=== PATIENT | female | born 1950 | race Caucasian/White ===

== ENCOUNTER 2021-06-07 11:35 | Day surgery (SDC) | payer MEDICARE, BC ==
[~2021-06-07 11:35] MED LIST: Lactated Ringers 1,000 ML IV SCH; Sodium Chloride 0.9% 10 ML Syringe FLUSH PRN; Sodium Chloride 0.9% 2.5 ML Syringe FLUSH PRN; Sodium Chloride 0.9% 20 ML SDV IV PRN
[2021-06-07] MEDS ORDERED: Lidocaine 1% 20 ML MDV ONE (13:33)
[2021-06-07] MEDS ORDERED: Octyl 2-Cyanoacrylate 1 Tube ONE (14:03)
== END 2021-06-07 14:40 | disposition home or self-care (01) ==
LOC: MW.SDS 11:35
PROVIDERS: ATTEND Surgery
DX: L72.0 Epidermal cyst (principal); Z88.8 Allergy status to other drugs, medicaments and biological substances; Z88.0 Allergy status to penicillin; Z88.2 Allergy status to sulfonamides; Z98.890 Other specified postprocedural states
CPT/HCPCS: 11402; A9270; 88304

== ENCOUNTER 2021-12-14 06:00 | Day surgery (SDC) | payer MEDICARE, BC ==
[2021-12-14] MEDS ORDERED: Pregabalin 75 MG Cap ONE (07:11)
[2021-12-14] MEDS ORDERED: Scopolamine 1.5 MG Transdermal Patch ONE (07:11)
[2021-12-14] MEDS ORDERED: Ondansetron 4 MG/2 ML SDV ONE (07:22)
[2021-12-14] MEDS ORDERED: Lidocaine 2% 5 ML SDV ONE (07:22)
[2021-12-14] MEDS ORDERED: Propofol 200 MG/20 ML SDV ONE (07:22)
[2021-12-14] MEDS ORDERED: fentaNYL 100 MCG/2 ML SDV ONE (07:22)
[2021-12-14] MEDS ORDERED: Sugammadex Sodium 200 MG/2 ML VIAL ONE (07:22)
[2021-12-14] MEDS ORDERED: Rocuronium Bromide 50 MG/5 ML Syringe ONE (07:22)
[2021-12-14] MEDS ORDERED: Dexamethasone 4 MG/ML 5 ML MDV ONE (07:22)
[2021-12-14] MEDS ORDERED: Bupivacaine 0.25% 30 ML SDV ONE (07:27)
[2021-12-14] MEDS ORDERED: Ropivacaine 0.5% 5 MG/ML 30 ML SDV ONE (07:41)
[2021-12-14] MEDS ORDERED: Lactated Ringers 1,000 ML IV ONE (08:00)
[2021-12-14] MEDS ORDERED: Phenylephrine HCl In 0.9% NaCl 1 MG/10 ML Vial ONE (09:00)
[2021-12-14] MEDS ORDERED: Indocyanine Green 25 MG SDV ONE (09:13)
[2021-12-14] MEDS ORDERED: Water For Injection, Sterile 20 ML ONE (09:13)
== END 2021-12-14 13:00 ==
LOC: MW.SDS 06:00
PROVIDERS: ATTEND Surgery
DX: K81.1 Chronic cholecystitis (principal); K82.8 Other specified diseases of gallbladder; Z88.5 Allergy status to narcotic agent; Z88.0 Allergy status to penicillin; Z88.2 Allergy status to sulfonamides; Z88.8 Allergy status to other drugs, medicaments and biological substances; Z79.82 Long term (current) use of aspirin; Z79.899 Other long term (current) drug therapy; Z98.890 Other specified postprocedural states
CPT/HCPCS: 47562; A9270; J0131; J0694; J1100; J2405; J2704; J2795; J3010; J3490; J7120; 00790; 64488

== ENCOUNTER 2022-07-19 06:31 | Day surgery (SDC) | payer MEDICARE, BC ==
[~2022-07-19 06:31] MED LIST changes: -Sodium Chloride 0.9% 10 ML Syringe FLUSH PRN; -Sodium Chloride 0.9% 2.5 ML Syringe FLUSH PRN; -Sodium Chloride 0.9% 20 ML SDV IV PRN
[2022-07-19] MEDS ORDERED: Famotidine 20 MG/2 ML SDV ONE (07:23)
[2022-07-19] MEDS ORDERED: Lidocaine 2% 5 ML SDV ONE (07:32)
[2022-07-19] MEDS ORDERED: Ondansetron 4 MG/2 ML SDV ONE (07:32)
[2022-07-19] MEDS ORDERED: fentaNYL 100 MCG/2 ML SDV ONE (07:32)
[2022-07-19] MEDS ORDERED: Propofol 200 MG/20 ML SDV ONE (07:32)
== END 2022-07-19 08:55 | disposition home or self-care (01) ==
LOC: MW.SDS 06:31
PROVIDERS: ATTEND Surgery
DX: R10.31 Right lower quadrant pain (principal); K57.30 Diverticulosis of large intestine without perforation or abscess without bleeding; Z88.0 Allergy status to penicillin; Z88.2 Allergy status to sulfonamides; Z88.5 Allergy status to narcotic agent; Z91.012 Allergy to eggs; Z91.018 Allergy to other foods; Z79.82 Long term (current) use of aspirin; Z79.899 Other long term (current) drug therapy; Z90.710 Acquired absence of both cervix and uterus; F17.200 Nicotine dependence, unspecified, uncomplicated
CPT/HCPCS: 45380; J2405; J2704; J3010; J3490; J7120; 00811

== ENCOUNTER 2022-09-07 17:35 | Emergency (ER) | payer MEDICARE, BC ==
[2022-09-07] MEDS ORDERED: Sodium Chloride 0.9% 2.5 ML Syringe FLUSH PRN (17:37)
[2022-09-07] MEDS ORDERED: Sodium Chloride 0.9% 10 ML Syringe FLUSH PRN (17:37)
[2022-09-07 17:52] LABS: BASOPHILS PERCENT AUTO 0.6 % (0.0-1.5); EOSINOPHILS ABSOLUTE AUTO 0.1 K/uL (0.0-0.7); EOSINOPHILS PERCENT AUTO 1.7 % (0.0-7.0); HEMATOCRIT 34.6 % (36.0-46.0); HEMOGLOBIN 11.8 g/dL (12.0-16.0); LYMPHOCYTES ABSOLUTE AUTO 1.5 K/uL (0.6-2.4); LYMPHOCYTES PERCENT AUTO 29.1 % (16.0-40.0); MEAN CORPUSCULAR HEMOGLOBIN 30.7 pg (27.0-32.0); MEAN CORPUSCULAR HGB CONC 34.1 g/dL (31.0-37.0); MEAN CORPUSCULAR VOLUME 90.1 fL (80.0-98.0); MONOCYTES ABSOLUTE AUTO 0.8 K/uL (0.0-0.8); MONOCYTES PERCENT AUTO 14.9 % (0.0-15.0); NEUTROPHILS ABSOLUTE AUTO 2.9 K/uL (1.4-5.7); NEUTROPHILS PERCENT AUTO 53.7 % (48.0-80.0); NRBC ABSOLUTE 0 K/uL; PLATELET COUNT,PLT 259 K/uL (150-400); RED BLOOD CELL COUNT 3.84 M/uL (4.30-5.90)
[2022-09-07 18:23] LABS: A/G RATIO 1.3 (0.9-1.6); ALBUMIN 3.9 g/dL (3.4-5.0); BILIRUBIN TOTAL 0.6 mg/dL (0.2-1.0); CALCIUM 9.4 mg/dL (8.5-10.1); CARBON DIOXIDE,CO2 25.9 mmol/L (21.0-32.0); CREATININE 0.9 mg/dL (0.6-1.0)
[2022-09-07 18:25] LABS: MAGNESIUM 1.9 mg/dL (1.8-2.4)
[2022-09-07] MEDS ORDERED: Ondansetron 4 MG/2 ML SDV IVPUSH STA (18:34)
[2022-09-07] MEDS ORDERED: Magnesium Sulfate/Water 2 GM in Premix Bag 1 BAG IV STA (18:34)
[2022-09-07 19:05] LABS: APPEARANCE,URINE CLEAR; BILIRUBIN,URINE NEGATIVE (NEGATIVE); COLOR,URINE YELLOW; GLUCOSE,URINE NEGATIVE (NEGATIVE); KETONES,URINE NEGATIVE (NEGATIVE); LEUKOCYTE ESTERASE,URINE NEGATIVE (NEGATIVE); NITRITE,URINE NEGATIVE (NEGATIVE); OCCULT BLOOD,URINE NEGATIVE (NEGATIVE); PH,URINE 7.5 (5.0-8.0); PROTEIN,URINE NEGATIVE (NEGATIVE); UROBILINOGEN,URINE 0.2 EU/dL (<2.0)
[2022-09-07] MEDS ORDERED: Potassium Chloride 20 MEQ Tab.ER PO STA (19:33)
== END 2022-09-07 21:06 | disposition home or self-care (01) ==
LOC: MW.ED 17:35
DX: R07.9 Chest pain, unspecified (principal); E87.6 Hypokalemia; I10 Essential (primary) hypertension; M19.90 Unspecified osteoarthritis, unspecified site; Z79.899 Other long term (current) drug therapy; Z79.82 Long term (current) use of aspirin; Z88.0 Allergy status to penicillin; Z88.8 Allergy status to other drugs, medicaments and biological substances; Z91.018 Allergy to other foods; Z91.012 Allergy to eggs; Z88.1 Allergy status to other antibiotic agents; Z88.2 Allergy status to sulfonamides; Z88.5 Allergy status to narcotic agent
CPT/HCPCS: 36415; 71045; 80053; 81003; 83735; 84484; 85025; 93005; 96365; 96375; 99285; A9270; J2405; J3475; J3490; 93010; 99284